=== PATIENT | male | born 1945 | race Caucasian/White ===

== ENCOUNTER → 2018-09-07 | Day surgery (SDC) | payer MEDICARE ==
[2018-09-06 14:52] LABS: BASOPHILS % 0.2 % (0.0-1.0); EOSINOPHILS % 0.2 % (0.0-6.0); HEMATOCRIT 45.8 % (38.2-49.6); LYMPHOCYTES # (AUTO) 1.5 (1.0-3.2); LYMPHOCYTES % 16.1 % (18.0-39.1); MEAN CORPUSCULAR HEMOGLOBIN 32.4 pg (28-32); MEAN CORPUSCULAR HGB CONC 34.9 g/dL (31-35); MEAN CORPUSCULAR VOLUME 92.7 fL (81-99); MONOCYTES # (AUTO) 0.9 (0.2-0.8); MONOCYTES % 9.9 % (4.4-11.3); NEUTROPHILS # (AUTO) 6.6 (2.1-6.9); NEUTROPHILS % 73.2 % (38.7-80.0); PLATELET COUNT 274 x10e3/uL (140-360); RED BLOOD COUNT 4.94 x10e6/uL (4.3-5.7); RED CELL DISTRIBUTION WIDTH 11.9 % (11.7-14.4)
[2018-09-06 15:02] LABS: INR 0.8; PROTHROMBIN TIME 11.8 seconds (11.9-14.5)
[2018-09-06 15:16] LABS: ANION GAP 16.2 mmol/L (8-16); BLOOD UREA NITROGEN 14 mg/dL (7-26); BUN/CREATININE RATIO 13 (6-25); CALCIUM 10.1 mg/dL (8.4-10.2); CARBON DIOXIDE 24 mmol/L (22-29); CHLORIDE 104 mmol/L (98-107); CREATININE, SERUM 1.06 mg/dL (0.72-1.25); EST GLOMERULAR FILTRATION RATE > 60 ML/MIN (60-); GLUCOSE 108 mg/dL (74-118); POTASSIUM 4.2 mmol/L (3.5-5.1); SODIUM 140 mmol/L (136-145)
--- NOTE | 2018-09-06 15:37 | Diagnostic Imaging Report ---
EXAMINATION: PA and lateral views of the chest. COMPARISON: None CLINICAL HISTORY: Preop for heart catheter DISCUSSION: Lungs are well-inflated. Symmetric nodular opacities project over the lung bases compatible with nipple shadows. No focal airspace consolidation, pleural effusion, or pneumothorax. Mild tortuosity of the thoracic aorta. Normal heart size. No pulmonary edema. No acute osseous abnormalities. Multilevel degenerative disc changes of the thoracic spine. IMPRESSION: No acute cardiopulmonary abnormalities. Signed by: Dr. Rosas Hunt M.D. on 09/06/2018 3:34 PM
[2018-09-07] VITALS (17 sets, daily range): BP systolic 97–167; BP diastolic 61–88
[~2018-09-07] VITALS: Ht 185.4 cm; Wt 104.3 kg
[~2018-09-07] MED LIST: ALLEGRA ALLERGY60 MG PO; AMLODIPINE BESY10 MG PO; ASPIR 8181 MG PO; AZELASTINE137 MCG/0.; CLARITIN10 MG PO; FENOFIBRATE160 MG PO; FENTANYL CITRATE/PF 100MCG/2 ML INJ ONE; FISH OIL 1,2001 EACH PO; FLONASE; FLUTICASONE PRO16 GM; FOLIC ACID1 MG PO; HEPARIN SOD/SOD CHLORIDE 2,000 ML ONE; HYDROCHLOROTHIA25 MG PO; IOPAMIDOL 370 MG/ML 200 ML INFUS..BTL INJ ONE; LIDOCAINE HCL 2% LOCAL 20 ML VIAL ONE; LISINOPRIL40 MG PO; METOPROLOL TART25 MG PO; MIDAZOLAM HCL 2 MG/2 ML VIAL ONE; MUCINEX DM ER1 EACH PO; MULTIVITAMINS1 EAC8 PO; NASACORT INH; OMEPRAZOLE40 MG PO; POTASSIUM CHLO10 MEQ PO; PRAVASTATIN SOD40 MG PO; RANITIDINE HCL150 MG PO; SALINE NOSE SPR45 ML; SODIUM CHLORIDE 0.9% 1000ML 1,000 ML ONE; VITAMIN B12 PO; [UNRECOGNIZED DRUG - OTHER]
--- OUTSIDE RECORDS SUMMARY | 2018-09-07 06:28 | XMS REPORT | Summary of Care ---
Author Organization Unknown Address Unknown Phone Unavailable Encounter HQ Encntr_alias(FIN) [id number] Date(s): 01/18/15 - 01/18/15 [facility] [place] [address] [place] [address]- [facility] [phone] Discharge Disposition: Home Physician Attending: Brooks Sears MD Vital Signs No data available for this section Problem List No data available for this section Allergies, Adverse Reactions, Alerts No data available for this section Medications No data available for this section Results No data available for this section Immunizations No data available for this section Procedures No data available for this section Social History No data available for this section Assessment and Plan No data available for this section
--- OUTSIDE RECORDS SUMMARY | 2018-09-07 06:28 | XMS REPORT | Summary of Care ---
Author Organization Unknown Address Unknown Phone Unavailable Encounter HQ Miker_mandi(MIKA) [id number] Date(s): 06/01/14 - 06/01/14 [facility] Outpatient Imaging - [address] [address]- [facility] Discharge Disposition: Home Physician Attending: Brooks Sears MD Reason for Visit 719.41 - JOINT PAIN-SHLD Problem List No data available for this section Allergies, Adverse Reactions, Alerts No data available for this section Medications No data available for this section Medications Administered During Your Visit No data available for this section Immunizations No data available for this section
--- OUTSIDE RECORDS SUMMARY | 2018-09-07 06:28 | XMS REPORT | Continuity of Care Document ---
Author Author Cruzito p[facility] Address Unknown Phone Unavailable Problems Problem Status Onset Date Classification Date Reported Comments Source M54.2 - CERVICALGIA Active 06/02/2017 [facility] Medications Medication Details Route Status Patient Instructions Ordering Provider Order Date Source Allergies, Adverse Reactions, Alerts Substance Category Reaction Severity Reaction type Status Date Reported Comments Source Immunizations Immunization Date Given Site Status Last Updated Comments Source Results Order Name Results Value Reference Range Date Interpretation Comments Source Spine cervical wo contrast MRI Spine cervical wo contrast MRI MRI CERVICAL SPINE WITHOUT CONTRAST 06/14/2017 4:52 PM CDT TECHNIQUE: Multiplanar multisequence imaging of the cervical spine was performed without administration of intravenous gadolinium. COMPARISON: No prior exam. FINDINGS: Multilevel disc desiccation is seen.Anterior osteophytes are present from the C4-C7 levels measuring up to 1.7 cm at the C5-C6 level. C1-C2: Unremarkable. C2-C3: Unremarkable. C3-C4: Severe left facet arthrosis with severe left foraminal stenosis. Small left foraminal osteophytes are present. 1.5 mm anterolisthesis is seen. Mild central canal stenosis. Left ligamenta flava redundancy with significant left lateral recess stenosis. C4-C5: Significant disc narrowing. 3.5 mm posterior disc osteophyte complex with mild central canal stenosis and mild cord indentation. Severe bilateral foraminal stenosis due to foraminal osteophytes and uncovertebral joint arthrosis. C5-C6: 2 mm disc bulge is present, with 3 mm probable C5 and C6 level ossification or thickening of the posterior longitudinal ligament. Mild central canal stenosis and minimal cord indentation are present. Moderate bilateral foraminal stenosis is present. C6-C7: 5 mm posterior disc osteophyte complex, with cord indentation and mild central canal stenosis. Severe left and mild right foraminal stenosis. Prominent anterior osteophytes. C7-T1: 2 mm disc bulge. No significant central canal stenosis. Mild bilateral facet arthrosis and [id number] bilateral foraminal stenosis. Multilevel upper thoracic spine facet arthrosis and ligamenta flava redundancy are present with moderate to severe right foraminal stenosis. The cervical cord signal is unremarkable without MRI evidence of myelomalacia. IMPRESSION: 1. Multilevel disc degenerative disease and spondylosis. Prominent anterior osteophytes at several mid to lower cervical levels. 2. Multilevel mild central canal stenosis and mild cord indentation. 3. C5 and C6 level thickening or ossification of the posterior longitudinal ligament as above. 4. Multilevel moderate to severe foraminal stenosis. 5. C3-C4 minimal grade 1 degenerative anterolisthesis. 06/14/2017 - - Read by: Shayne Escalera MD Dictated Date/time: 06/15/17 09:14 Electronically Signed by: Shayne Escalera MD 06/15/17 09:25 FINAL REPORT GHISLAINE Cuiadena Vital Signs Vital Sign Value Date Comments Source Encounters Location Location Details Encounter Type Encounter Number Reason For Visit Attending Provider ADM Date DC Date Status Source [facility] [id number] Brooks Sears 06/01/2014 06/02/2014 [facility] [id number] Brooks Sears 01/18/2015 01/19/2015 [facility] [id number] Antonio Arboleda 06/14/2017 06/15/2017 [facility] Procedures Procedure Code Date Perfomer Comments Source
--- OUTSIDE RECORDS SUMMARY | 2018-09-07 06:29 | XMS REPORT ---
Author Author [facility] Address Unknown Phone Unavailable Care Team Providers Care Nozzle And Sleeve Worker Name Role Phone LUDIN GALVAN Unavailable Unavailable Problems This patient has no known problems. Allergies, Adverse Reactions, Alerts This patient has no known allergies or adverse reactions. Medications This patient has no known medications. Results Test Description Test Time Test Comments Text Results Atomic Results Result Comments CHEST 2 VIEWS 2018-09-06 15:32:00 [facility] [address] [place] [address] Patient Name: VIDA LEZAMA MR #: [id number] : 1945 Age/Sex: 73/M Req #: [id number] Adm Physician: Ordered by: LUDIN GALVAN MD Report #: [id number] Location: [facility] Room/Bed: Procedure: [id number] DX/CHEST 2 VIEWS Exam Date: 09/06/18 Exam Time: 1453 REPORT STATUS: Signed EXAMINATION: PA and lateral views of the chest. COMP ARISON: None CLINICAL HISTORY: Preop for heart catheter DISCUSSION: Lungs are well-inflated. Symmetric nodular opacities project over the lung bases compatible with nipple shadows. No focal airspace consolidation, pleural effusion, or pneumothorax. Mild tortuosity of the thoracic aorta. Normal heart size. No pulmonary edema. No acute osseous abnormalities. Multilevel degenerative disc changes of the thoracic spine. IMPRESSION: No acute cardiopulmonary abnormalities. Signed by: Dr. Puneet Herbert M.D. on 09/06/2018 3:34 PM Dictated By: PUNEET HERBERT MD 153 Transcribed By: LORNA on 09/06/181533 COPY TO: LUDIN GALVAN MD
--- NOTE | 2018-09-07 08:12 | NUR ---
0812am Received pt in #9. Identifierx2. Received pt orthodontic lab technician Report Tiffani GIBBONS.[facility] no fix Dr Jarrett Rt groin approach Site mannel pressure No s/s oozing No hematoma Site Dry and intact. Abd soft and non tender Denies necessity to defecate and urinate Left arm iv at 50hr Site w/o s/s infiltration.Bilateral femoral pulse intact. Reviewed discharged papers with LUAN [phone].Has copies.
--- NOTE | 2018-09-07 14:15 | NUR ---
Discharged home per private car with services delivery driver pr w/c. Rt femoral dressing remain intact w/o hematoma. Iv removed and 2x2 dressing with gauze coban dressing.No s/s infiltation. Instructions understood.
--- NOTE | 2018-09-07 14:58 | Operative Report ---
DATE OF PROCEDURE: September 07, 2018 PROCEDURES PERFORMED 1. Left heart catheterization. 2. Selective coronary angiogram. 3. Left ventriculogram. INDICATIONS: Chest pain and abnormal stress test. ANESTHESIA: 2% lidocaine for local anesthesia. Fentanyl and Versed for conscious sedation. BLOOD LOSS: 2 mL. DESCRIPTION OF PROCEDURE: After informed consent, the patient was brought to the cardiac catheterization laboratory and placed on the table. Both groins were painted and draped in a sterile fashion. Lidocaine was injected in the right groin for local anesthesia. Right femoral artery was accessed by Seldinger technique, and a 5-Tamazight sheath was placed in the right femoral artery. Left main artery was cannulated using a JL4 5-Tamazight catheter. Coronary angiogram was performed and images obtained in multiple views. The right coronary artery was cannulated using a 3DRC 5-Tamazight catheter. Coronary angiogram was performed and images obtained in multiple views. LV-gram was performed using a pigtail catheter. Patient tolerated the procedure without any complications. REPORT LEFT MAIN: Normal caliber. There are luminal irregularities. LEFT ANTERIOR DESCENDING: Narrow caliber. There are luminal irregularities. LEFT CIRCUMFLEX: Normal caliber with luminal irregularities. The 1st obtuse marginal branch is a small branch and has about 20% to 30% mid lesion. RIGHT CORONARY ARTERY: Normal caliber with luminal irregularities. LV-GRAM: Normal LV function. Overall ejection fraction 55% to 60%. HEMODYNAMICS: Aortic pressure is 147/73. LV pressure is 142/-3. LVEDP is 14. PLAN: Medical management. Job#: [id number]
== END | disposition home or self-care (01) ==
LOC: CATH LAB 06:26
DX: I25.10 Atherosclerotic heart disease of native coronary artery without angina pectoris (principal); R94.39 Abnormal result of other cardiovascular function study; I10 Essential (primary) hypertension; E78.00 Pure hypercholesterolemia, unspecified; K21.9 Gastro-esophageal reflux disease without esophagitis; Z88.2 Allergy status to sulfonamides; Z88.8 Allergy status to other drugs, medicaments and biological substances; Z01.810 Encounter for preprocedural cardiovascular examination; Z01.812 Encounter for preprocedural laboratory examination; Z01.818 Encounter for other preprocedural examination; Z79.82 Long term (current) use of aspirin; Z68.31 Body mass index [BMI] 31.0-31.9, adult; Z82.49 Family history of ischemic heart disease and other diseases of the circulatory system; Z87.891 Personal history of nicotine dependence
CPT/HCPCS: 36415; 71046; 80048; 85025; 85610; 85730; 93005; 93458; J2001; J2250; J7030; Q9967

== ENCOUNTER → 2019-07-12 | Outpatient (CLI) | payer MEDICARE ==
[~2019-07-12] MED LIST changes: -FENTANYL CITRATE/PF 100MCG/2 ML INJ ONE; -HEPARIN SOD/SOD CHLORIDE 2,000 ML ONE; -IOPAMIDOL 370 MG/ML 200 ML INFUS..BTL INJ ONE; -LIDOCAINE HCL 2% LOCAL 20 ML VIAL ONE; -MIDAZOLAM HCL 2 MG/2 ML VIAL ONE; -SODIUM CHLORIDE 0.9% 1000ML 1,000 ML ONE
== END ==
LOC: DX 12:24
PROVIDERS: ATTEND Internal Medicine Gastroenterology
DX: K29.00 Acute gastritis without bleeding (principal)
CPT/HCPCS: 74230

== ENCOUNTER 2019-08-15 12:59 | Outpatient (RCR) | payer MEDICARE ==
--- NOTE | 2019-07-24 15:00 | NUR ---
Clinical Swallow Evaluation/Initial Treatment Session Patient is a 73 year old male with diagnosis of acute superficial gastritis without hemorrhage. Pt participated in a modified barium swallow study on 07/12/19. Pt presented with mild pharyngeal dysphagia c/b consistent premature spillage over the base of tongue, deep penetration into the laryngeal vestibule with thing liquids, and consistent pharyngeal residue after the swallow. Dysphagia was judged to be secondary to decreased pharyngeal constriction, decreased coordination of the swallow, and decreased hyolaryngeal excursion. While aspiration was not observed during the exam it is likely that, during normal eating environments, material collects in the laryngeal vestibule and eventually spills into the airway, causing the choking episodes he described. Pt also had complaints that are consistent with laryngopharyngeal reflux (LPR), including change in vocal quality, dry cough, and constant throat clearing. Recommendation was made for dysphagia therapy to increase strength and coordination of swallow. Patient was seen today in the outpatient clinic for initial treatment of Neuromuscular Electrical Stimulation (NMES) with VitalStim Therapy and traditional dysphagia therapy with pharyngeal exercises. Pt was seen with spouse present. Oral motor exam revealed function that was grossly within normal limits. Patient tolerated room air. Hearing appeared to be WFL. Patient reported no change in his swallow skills since the modified barium swallow study. Pt confirmed that pt continues to choke and cough intermittently during meal times. Provided extensive education re: need for therapy, purpose of exercises and NMES, and future plan of care. Pt indicated understanding. Pt was given water and hard candy. Pt was instructed to take small bites/sips and swallow hard, feeling all the muscles in his throat contract. Placement 3b was used to target the mylohyoid muscle, the anterior belly of the digastric muscle, the sternohyoid muscle, the omohyoid muscle, the geniohyoid muscle, and the middle pharyngeal constrictors. Channel 1 of the electrodes was aligned horizontally just above the hyoid bone and channel 2 of the electrodes was aligned horizontally at the level of the thyroid notch. This placement was used to improve base of tongue strength, pharyngeal constriction, and UES function. Pt initially tolerated 5.0 mA, but as the session progressed pt tolerated 13.0 mA. Pt received 45 minutes of stimulation. Cough noted X 1, throat clear X 5. During NMES an exercise program was presented, demonstrated, and discussed. Pt completed the exercises with moderate assistance. A home program was assigned. Pt verbalized understanding of the home exercise program. Education provided as indicated. All questions were answered. Pt/spouse stated that it would be better to attend treatment twice per week. Impressions: Pt tolerated initial session of NMES well. He continues to report and demonstrate s/s of aspiration during meals which significantly interferes with his quality of life. Pt is an excellent candidate for dysphagia exercises and NMES for improvement of strength and coordination of swallow. Recommendations: 1.Dysphagia therapy to include traditional exercises and NMES 2X/week for 6 weeks for a total of 12 treatment sessions 2.Home exercise program 3.Repeat MBS in 6 weeks with new goals to be determined at that time. [facility] Goal: Pt will tolerate least restrictive diet without s/s of aspiration as judged by an objective evaluation. Short Term Goals: 1.Pt will complete 3 repetitions of a set of dysphagia exercises to improve laryngeal elevation, base of tongue retraction, and laryngeal closure, 10 repetitions per exercise, with minimal cues. 2.Pt will tolerate NMES for 45 60 minutes with no clinical s/s of aspiration to improve strength of pharyngeal constrictors, hyolaryngeal excursion, and safety with po intake. 3.Pt will complete home dysphagia exercise program targeting laryngeal elevation, base of tongue strength, and cricopharyngeal function independently. 4.Pt will follow aspiration precautions with independence. 5.Pt will participate in a repeat Modified Barium Swallow study to objectively re-assess swallow safety and function and determine safest diet. Nurys Madison M.A. CCC-LEGISLATIVE ASSISTANT Date of Session: 03/15/19 Dysphagia Evaluation X 64 minutes JAIME NOMS Rating for Swallowing: Level 6
== END 2019-08-19 ==
LOC: ST 12:59
PROVIDERS: ATTEND Internal Medicine Gastroenterology
DX: R13.13 Dysphagia, pharyngeal phase (principal); K29.00 Acute gastritis without bleeding

== ENCOUNTER → 2019-09-08 | Outpatient (CLI) | payer MEDICARE ==
--- NOTE | 2019-09-08 15:16 | Diagnostic Imaging Report ---
PROCEDURE: X-RAY MODIFIED BARIUM SWALLOW COMPARISON: None. INDICATION: Dysphasia Radiation Details: Fluoroscopy time: 1.1 minutes Cumulative dose: 4.5 mGy DISCUSSION: Fluoroscopic examination was performed in conjunction with speech pathology during swallowing a variety of thin and thick liquid consistencies. Provided images demonstrate one episode of laryngeal penetration but no aspiration. CONCLUSION: Modified barium swallow demonstrating one episode of laryngeal penetration but no aspiration. Please refer to the speech pathology report for further details. Signed by: Delia Power MD on 09/08/2019 3:13 PM
== END ==
LOC: DX 11:40
PROVIDERS: ATTEND Internal Medicine Gastroenterology
DX: R13.13 Dysphagia, pharyngeal phase (principal); K29.70 Gastritis, unspecified, without bleeding; R05 Cough
CPT/HCPCS: 74230

== ENCOUNTER → 2019-10-23 | Outpatient (CLI) | payer MEDICARE | LOC: CARD 13:21 | PROVIDERS: ATTEND Family Medicine | DX: I73.9 Peripheral vascular disease, unspecified (principal); M75.42 Impingement syndrome of left shoulder; M19.012 Primary osteoarthritis, left shoulder | CPT/HCPCS: 93925 ==

== ENCOUNTER → 2021-01-02 | Outpatient (CLI) | payer MEDICARE ==
[~2021-01-02] MED LIST changes: +IOPAMIDOL 370 MG/ML 200 ML INFUS..BTL INJ ONE; +SODIUM CHLORIDE 0.9% 50ML 50 ML ONE
[2021-01-02 12:00] LABS: CREATININE, SERUM 1.22 mg/dL (0.72-1.25)
== END ==
LOC: CT 11:14
PROVIDERS: ATTEND Family Medicine
DX: R91.8 Other nonspecific abnormal finding of lung field (principal); J33.9 Nasal polyp, unspecified
CPT/HCPCS: 36415; 71260; 82565; 84520; Q9967

== ENCOUNTER → 2021-05-28 | Day surgery (SDC) | payer MEDICARE ==
[2021-05-23 09:49] LABS: BASOPHILS % 0.3 % (0.0-1.0); EOSINOPHILS # (AUTO) 0.1 (0.0-0.4); EOSINOPHILS % 0.9 % (0.0-6.0); HEMATOCRIT 42.2 % (38.2-49.6); HEMOGLOBIN 14.3 g/dL (14.0-18.0); LYMPHOCYTES % 22.7 % (18.0-39.1); MEAN CORPUSCULAR HEMOGLOBIN 30.3 pg (28-32); MEAN CORPUSCULAR HGB CONC 33.9 g/dL (31-35); MEAN CORPUSCULAR VOLUME 89.4 fL (81-99); MONOCYTES % 11.9 % (4.4-11.3); NEUTROPHILS # (AUTO) 5.6 (2.1-6.9); NEUTROPHILS % 63.4 % (38.7-80.0); PLATELET COUNT 284 x10e3/uL (140-360); RED BLOOD COUNT 4.72 x10e6/uL (4.3-5.7); RED CELL DISTRIBUTION WIDTH 12.9 % (11.7-14.4)
[2021-05-23 10:50] LABS: ALBUMIN 3.4 g/dL (3.5-5.0); ALBUMIN/GLOBULIN RATIO 1.1 (0.8-2.0); ANION GAP 15.9 mmol/L (8-16); CALCIUM 9.6 mg/dL (8.4-10.2); CHOL/HDL RATIO 4.6 (3.9-4.7); CREATININE, SERUM 1.02 mg/dL (0.72-1.25); POTASSIUM 3.9 mmol/L (3.5-5.1)
[2021-05-27 14:45] VITALS: BP 123/80
[~2021-05-28] VITALS: Ht 185.4 cm; Wt 102.1 kg
[2021-05-28] VITALS (11 sets, daily range): BP systolic 112–155; BP diastolic 71–98
[~2021-05-28] MED LIST changes: +ASPIRIN 325 MG TAB ONE; +CEPHALEXIN500 M1 PO; +CLOPIDOGREL BISULFATE 75 MG TAB ONE; +CLOPIDOGREL75 MG PO; +CRESTOR10 MG PO; +FAMOTIDINE20 MG PO; +FENTANYL CITRATE/PF 100MCG/2 ML INJ ONE; +FISH OIL 1,0001 EAC2 PO; +HEPARIN SOD/SOD CHLORIDE 2,000 ML ONE; +IOPAMIDOL 300MG/ML 100 ML INFUS..BTL IV ONE; -IOPAMIDOL 370 MG/ML 200 ML INFUS..BTL INJ ONE; +LIDOCAINE HCL 2% LOCAL 20 ML VIAL ONE; +MIDAZOLAM HCL 2 MG/2 ML VIAL ONE; +SODIUM CHLORIDE 0.9% 1000ML 1,000 ML ONE; -SODIUM CHLORIDE 0.9% 50ML 50 ML ONE; +VITAMIN B122500 MCG PO; +VITAMIN D310 MCG PO
== END | disposition home or self-care (01) ==
LOC: CATH LAB 07:18
PROVIDERS: ATTEND Internal Medicine
DX: I70.221 Atherosclerosis of native arteries of extremities with rest pain, right leg (principal); I10 Essential (primary) hypertension; E78.5 Hyperlipidemia, unspecified; E11.9 Type 2 diabetes mellitus without complications; Z95.820 Peripheral vascular angioplasty status with implants and grafts; Z01.812 Encounter for preprocedural laboratory examination; Z20.822 Contact with and (suspected) exposure to COVID-19; Z79.02 Long term (current) use of antithrombotics/antiplatelets; Z79.82 Long term (current) use of aspirin; Z68.30 Body mass index [BMI] 30.0-30.9, adult; Z86.73 Personal history of transient ischemic attack (TIA), and cerebral infarction without residual deficits; Z86.19 Personal history of other infectious and parasitic diseases; Z82.49 Family history of ischemic heart disease and other diseases of the circulatory system
CPT/HCPCS: 36415; 37226; 75625; 80053; 80061; 85025; C1760; C1769 ×2; C1874; C1887; C1894; J2001; J2250; J3010; J7030; Q9967; U0002; 36247; 37224; 75630; 99152; 99153

== ENCOUNTER → 2021-06-06 | Day surgery (SDC) | payer MEDICARE ==
[2021-06-05 09:07] LABS: BASOPHILS % 0.5 % (0.0-1.0); EOSINOPHILS # (AUTO) 0.1 (0.0-0.4); HEMATOCRIT 42.7 % (38.2-49.6); LYMPHOCYTES # (AUTO) 1.6 (1.0-3.2); LYMPHOCYTES % 19.5 % (18.0-39.1); MEAN CORPUSCULAR HEMOGLOBIN 30.6 pg (28-32); MEAN CORPUSCULAR HGB CONC 32.8 g/dL (31-35); MEAN CORPUSCULAR VOLUME 93.4 fL (81-99); MONOCYTES % 11.4 % (4.4-11.3); NEUTROPHILS # (AUTO) 5.7 (2.1-6.9); NEUTROPHILS % 67.1 % (38.7-80.0); PLATELET COUNT 327 x10e3/uL (140-360); RED BLOOD COUNT 4.57 x10e6/uL (4.3-5.7); RED CELL DISTRIBUTION WIDTH 13.3 % (11.7-14.4)
[2021-06-05 09:24] LABS: CALCIUM 9.5 mg/dL (8.4-10.2); CREATININE, SERUM 1.23 mg/dL (0.72-1.25)
[~2021-06-06] MED LIST changes: -ASPIRIN 325 MG TAB ONE; +BUPIVACAINE HCL 0.5% INJ 30 ML VIAL INJ ONE; -CLOPIDOGREL BISULFATE 75 MG TAB ONE; +DEXAMETHASONE SOD PHOS INJ 4 MG/ML SDV ONE; +EPHEDRINE SULFATE INJ 50 MG/ML VIAL ONE; -HEPARIN SOD/SOD CHLORIDE 2,000 ML ONE; -IOPAMIDOL 300MG/ML 100 ML INFUS..BTL IV ONE; -LIDOCAINE HCL 2% LOCAL 20 ML VIAL ONE; +LIDOCAINE HCL 2% LOCAL INJ 5 ML SDV VIAL INJ ONE; -MIDAZOLAM HCL 2 MG/2 ML VIAL ONE; +NEOSTIGMINE 1 MG/ML 10ML VIAL ONE; +ONDANSETRON HCL INJ 2MG/ML 2ML 2 MG/ML VIAL ONE; +PHENYLEPHRINE HCL 1% 10 MG/ML VIAL ONE; +POVIDONE IODINE 0.05% 0.05 % ML PO ONE; +PROPOFOL IV EMULSION 10 MG/ML 20 ML VIAL ONE; +SEVOFLURANE INHAL SOLN 250 ML PEN BTL ONE; -SODIUM CHLORIDE 0.9% 1000ML 1,000 ML ONE
[2021-06-06 12:15] VITALS: BP 132/74
== END | disposition home or self-care (01) ==
LOC: OR 08:06
PROVIDERS: ATTEND Podiatrist Foot Surgery
DX: M86.9 Osteomyelitis, unspecified (principal); I96 Gangrene, not elsewhere classified; I10 Essential (primary) hypertension; K21.9 Gastro-esophageal reflux disease without esophagitis; I49.1 Atrial premature depolarization; Z88.2 Allergy status to sulfonamides; Z01.810 Encounter for preprocedural cardiovascular examination; Z01.812 Encounter for preprocedural laboratory examination; Z01.818 Encounter for other preprocedural examination; Z20.822 Contact with and (suspected) exposure to COVID-19; Z86.73 Personal history of transient ischemic attack (TIA), and cerebral infarction without residual deficits; Z87.891 Personal history of nicotine dependence; Z79.82 Long term (current) use of aspirin
CPT/HCPCS: 11042; 28825; 36415; 71046; 80048; 85025; 87071; 87075; 87186; 87205; 88305; 88311; 93005; J0690; J1100; J2001; J2370; J2405; J2704; J2710; J3010; U0002; 88304

== ENCOUNTER → 2024-03-08 | Day surgery (SDC) | payer MEDICARE ==
[~2024-03-08] VITALS: Ht 185.4 cm; Wt 104.3 kg
[2024-03-08] VITALS (12 sets, daily range): BP systolic 128–200; BP diastolic 80–103; PULSE 63–84; RESP 15–20; TEMP 96.4–96.8; O2SAT 95–100
[~2024-03-08] MED LIST changes: -BUPIVACAINE HCL 0.5% INJ 30 ML VIAL INJ ONE; +CLOPIDOGREL BISULFATE 75 MG TAB ONE; +COREG12.5 MG PO; -DEXAMETHASONE SOD PHOS INJ 4 MG/ML SDV ONE; -EPHEDRINE SULFATE INJ 50 MG/ML VIAL ONE; +FUROSEMIDE40 MG PO; +HEPARIN SOD (PORCINE) 1000 UNIT/ML 30ML ONE; +HEPARIN SOD/SOD CHLORIDE 2,000 ML ONE; +HYDRALAZINE HCL50 MG PO; +IOPAMIDOL 370 MG/ML 100 ML INFUS..BTL INJ ONE; +LIDOCAINE HCL 2% LOCAL 20 ML VIAL ONE; -LIDOCAINE HCL 2% LOCAL INJ 5 ML SDV VIAL INJ ONE; +MELOXICAM7.5 MG PO; +MIDAZOLAM HCL 2 MG/2 ML VIAL ONE; -NEOSTIGMINE 1 MG/ML 10ML VIAL ONE; +NITROGLYCERIN/D5W 200 MCG/ML 0 ML ONE; -ONDANSETRON HCL INJ 2MG/ML 2ML 2 MG/ML VIAL ONE; -PHENYLEPHRINE HCL 1% 10 MG/ML VIAL ONE; -POVIDONE IODINE 0.05% 0.05 % ML PO ONE; -PROPOFOL IV EMULSION 10 MG/ML 20 ML VIAL ONE; -SEVOFLURANE INHAL SOLN 250 ML PEN BTL ONE; +SODIUM CHLORIDE 0.9% 1000ML 1,000 ML ONE; +VERAPAMIL HCL 2.5 MG/ML 2 ML VIAL ONE; +XYZAL2.5 MG/5 M PO
[2024-03-08] MEDS: HYDRALAZINE HCL 20 MG/ML VIAL ONE (19:26)
== END | disposition home or self-care (01) ==
LOC: CATH LAB 12:37
PROVIDERS: ATTEND Internal Medicine
DX: I70.239 Atherosclerosis of native arteries of right leg with ulceration of unspecified site (principal); I70.92 Chronic total occlusion of artery of the extremities; I10 Essential (primary) hypertension; E78.5 Hyperlipidemia, unspecified; E11.9 Type 2 diabetes mellitus without complications; Z88.2 Allergy status to sulfonamides; Z79.1 Long term (current) use of non-steroidal anti-inflammatories (NSAID); Z79.02 Long term (current) use of antithrombotics/antiplatelets; Z79.82 Long term (current) use of aspirin; Z79.899 Other long term (current) drug therapy; Z68.30 Body mass index [BMI] 30.0-30.9, adult; Z86.73 Personal history of transient ischemic attack (TIA), and cerebral infarction without residual deficits; Z86.19 Personal history of other infectious and parasitic diseases; Z82.49 Family history of ischemic heart disease and other diseases of the circulatory system
CPT/HCPCS: 37225; 37252; 75625; 76937; C1724; C1725 ×2; C1753; C1760; C1769 ×3; C1887; C1894; J0360; J1644; J2001; J2250; J3010; J7030; Q9967; 36247; 37224; 75716; 99152; 99153